=== PATIENT | male | born 1985 | race Hispanic/Latino ===

== ENCOUNTER 2020-11-22 18:45 | Emergency (ER) | payer MEDICAID ==
[~2020-11-22] VITALS: Ht 167.6 cm; Wt 129.3 kg
[2020-11-22 19:58] LABS: BASOPHILS % (AUTO) 0.6 % (0.0-5.0); EOSINOPHILS % (AUTO) 1.8 % (0.0-8.0); HEMATOCRIT 37.1 % (42-54); LYMPHOCYTES % (AUTO) 23.9 % (21.0-51.0); MEAN CORPUSCULAR HEMOGLOBIN 28.5 pg (27.0-33.0); MEAN CORPUSCULAR HGB CONC 35.3 g/dL (32.0-36.0); MEAN CORPUSCULAR VOLUME 80.8 fL (79-99); NEUTROPHILS % (AUTO) 68.3 % (40.0-77.0); PLATELET COUNT (AUTO) 223 K/uL (130-400); RED BLOOD CELL COUNT(AUTO) 4.59 MIL/uL (4.50-6.20); RED CELL DISTRIBUTION WIDTH 12.9 % (11.0-15.5); WHITE BLOOD COUNT (AUTO) 8.4 K/uL (4.8-10.8)
[2020-11-22 20:00] LABS: APPEARANCE,URINE Clear (CLEAR); BILIRUBIN,URINE Small (NEGATIVE); COLOR,URINE Dark Yellow (YELLOW); GLUCOSE, URINE (UA) >=1000 mg/dL (NEGATIVE); KETONES,URINE 15 mg/dL (NEGATIVE); LEUKOCYTE ESTERASE ,URINE Negative (NEGATIVE); NITRATE,URINE Negative (NEGATIVE); OCCULT BLOOD,URINE Negative (NEGATIVE); PROTEIN,URINE POS 1+ mg/dL (NEGATIVE)
[2020-11-22 20:08] LABS: AMPHET/METH SCREEN,URINE NEGATIVE (NEGATIVE); BARBITURATE SCREEN, URINE NEGATIVE (NEGATIVE); BENZODIAZEPINES SCREEN,URINE NEGATIVE (NEGATIVE); CANNABINOID SCREEN,URINE POSITIVE (NEGATIVE); COCAINE SCREEN,URINE NEGATIVE (NEGATIVE); OPIATE SCREEN,URINE NEGATIVE (NEGATIVE); PHENCYCLIDINE SCREEN,URINE NEGATIVE (NEGATIVE)
[2020-11-22 20:08] LABS: CARBON DIOXIDE 29 mmol/L (21-32); CHLORIDE 96 mmol/L (101-111); CREATININE 1.2 mg/dL (0.5-1.5); GLOMERULAR FILTR. RATE CALC 73 mL/min (>60); GLUCOSE,RANDOM 377 mg/dL (70-105); POTASSIUM 3.3 mmol/L (3.5-5.1); SODIUM SERUM 135 mmol/L (136-145); UREA NITROGEN, BLOOD 13 mg/dL (7-18)
[2020-11-22 20:09] LABS: BACTERIA,URINE Few /HPF (None Seen); RBC,URINE 0-1 /HPF (0-1)
[2020-11-22 20:10] LABS: HYALINE CASTS, URINE 0-1 /LPF (0-1 /LPF); MUCUS,URINE Few LPF (None Seen); SQUAMOUS EPITHELIAL CELL,UR Few /HPF (0-2)
[2020-11-22 20:12] LABS: ACETAMINOPHEN < 1 mcg/mL (10-29); ALANINE AMINOTRANSFERASE 232 U/L (12-78); ALBUMIN 3.6 g/dL (3.5-5.0); ALCOHOL, BLOOD 5 mg/dL (0-10); ASPARTATE AMINOTRANSFERASE 148 U/L (10-37); BILIRUBIN,TOTAL 0.7 mg/dL (0.2-1.0); CREATINE KINASE, TOTAL 238 U/L (21-232); SALICYLATE < 2.8 mg/dL (2.8-20.0); TOTAL PROTEIN, SERUM 7.6 g/dL (6.0-8.3)
[2020-11-22] MEDS ORDERED: INSULIN HUMULIN R 100 UNIT/ML 3ML IV ONE (21:00)
[2020-11-22] MEDS ORDERED: 0.9%NACL 1000ML 1,000 ML IV ONE (21:00)
[2020-11-22] MEDS ORDERED: POTASSIUM BICARB/CIT AC 25 MEQ TABLET.EFF PO ONE (21:00)
[2020-11-22] MEDS ORDERED: FAMOTIDINE 20MG VIAL IV ONE ×2 (21:30→21:31)
[2020-11-23 00:49] VITALS: BP 132/92
== END 2020-11-23 00:53 | disposition home or self-care (01) ==
LOC: EDH 18:45
DX: F20.9 Schizophrenia, unspecified (principal); Z20.822 Contact with and (suspected) exposure to COVID-19; E11.9 Type 2 diabetes mellitus without complications; E78.00 Pure hypercholesterolemia, unspecified; I10 Essential (primary) hypertension; J45.909 Unspecified asthma, uncomplicated; Z79.4 Long term (current) use of insulin
CPT/HCPCS: 36415; 80053; 80305; 81001; 82550; 82948; 85025; 87635; 96374; 96375; 99284; C9803; G0481; J1815; J7030; S0028; J3490

== ENCOUNTER 2022-05-22 17:07 | Emergency (ER) | payer MEDICAID ==
[~2022-05-22] VITALS: Ht 167.6 cm; Wt 121.1 kg
[2022-05-22 17:35] LABS: BASOPHILS % (AUTO) 0.8 % (0.0-5.0); EOSINOPHILS % (AUTO) 4.1 % (0.0-8.0); HEMATOCRIT 40.2 % (42-54); LYMPHOCYTES % (AUTO) 34.2 % (21.0-51.0); MEAN CORPUSCULAR HGB CONC 35.6 g/dL (32.0-36.0); MEAN CORPUSCULAR VOLUME 81.5 fL (79-99); MONOCYTES % (AUTO) 5.7 % (3.0-13.0); NEUTROPHILS % (AUTO) 54.8 % (40.0-77.0); PLATELET COUNT (AUTO) 271 K/uL (130-400); RED BLOOD CELL COUNT(AUTO) 4.93 MIL/uL (4.50-6.20); RED CELL DISTRIBUTION WIDTH 13.2 % (11.0-15.5); WHITE BLOOD COUNT (AUTO) 10.3 K/uL (4.8-10.8)
[2022-05-22 17:45] LABS: CREATININE 0.9 mg/dL (0.5-1.5); POTASSIUM 3.1 mmol/L (3.5-5.1)
[2022-05-22 17:52] LABS: TOTAL PROTEIN, SERUM 7.7 g/dL (6.0-8.3)
[2022-05-22] MEDS ORDERED: MECL-226 PO (17:54)
[2022-05-22 18:04] VITALS: BP 155/80
== END 2022-05-22 18:13 | disposition home or self-care (01) ==
LOC: EDH 17:07
DX: R42 Dizziness and giddiness (principal); I10 Essential (primary) hypertension; E11.9 Type 2 diabetes mellitus without complications; E78.00 Pure hypercholesterolemia, unspecified; F20.9 Schizophrenia, unspecified; J45.909 Unspecified asthma, uncomplicated; F41.9 Anxiety disorder, unspecified; F32.A Depression, unspecified
CPT/HCPCS: 36415; 80053; 84484; 85025

== ENCOUNTER 2023-07-31 22:14 | Emergency (ER) | payer MEDICAID ==
[~2023-07-31] VITALS: Ht 167.6 cm; Wt 127.0 kg
[~2023-07-31 22:14] MED LIST: MECL-226 PO
[2023-07-31 22:36] LABS: BASOPHILS # (AUTO) 0.07 K/uL (0.00-0.20); BASOPHILS % (AUTO) 0.6 % (0.0-5.0); EOSINOPHILS # (AUTO) 0.33 K/uL (0.00-0.70); HEMATOCRIT 38.5 % (42-54); IMMATURE GRANULOCYTE ABSOLUTE 0.04 K/uL (0-1); LYMPHOCYTES # (AUTO) 3.2 K/uL (1.0-4.8); LYMPHOCYTES % (AUTO) 28.5 % (21.0-51.0); MEAN CORPUSCULAR HEMOGLOBIN 29.6 pg (27.0-33.0); MEAN CORPUSCULAR HGB CONC 35.6 g/dL (32.0-36.0); MEAN CORPUSCULAR VOLUME 83.2 fL (79-99); MONOCYTES # (AUTO) 0.6 K/uL (0.1-1.0); MONOCYTES % (AUTO) 5.1 % (3.0-13.0); NEUTROPHILS % (AUTO) 62.4 % (40.0-77.0); PLATELET COUNT (AUTO) 287 K/uL (130-400); RED BLOOD CELL COUNT(AUTO) 4.63 MIL/uL (4.50-6.20); RED CELL DISTRIBUTION WIDTH 13.8 % (11.0-15.5); WHITE BLOOD COUNT (AUTO) 11.1 K/uL (4.8-10.8)
[2023-07-31 22:49] LABS: ALBUMIN 3.7 g/dL (3.5-5.0); BILIRUBIN,TOTAL 0.4 mg/dL (0.2-1.0); TOTAL PROTEIN, SERUM 7.4 g/dL (6.0-8.3)
[2023-07-31] MEDS: CEFTRIAXONE 2GM VIAL IVPB STA (22:51)
[2023-07-31 23:00] LABS: POTASSIUM 2.6 mmol/L (3.5-5.1)
[2023-07-31] MEDS: ACETAMINOPHEN 500 MG TABLET PO ONE (23:25)
[2023-07-31] MEDS: POTASSIUM BICARB/CIT AC 25 MEQ TABLET.EFF PO ONE (23:26)
[2023-08-01] MEDS ORDERED: ACET-2079 PO (00:53)
[2023-08-01] MEDS: LIDOCAINE 2%-EPI 1:200,000 20 ML VIAL IJ SCH (00:53)
[2023-08-01 01:58] VITALS: BP 138/79; PULSE 76; RESP 18; O2SAT 98
== END 2023-08-01 02:00 | disposition home or self-care (01) ==
LOC: EDH 22:14
DX: L02.31 Cutaneous abscess of buttock (principal); K60.3 Anal fistula; F41.9 Anxiety disorder, unspecified; J45.909 Unspecified asthma, uncomplicated; F31.9 Bipolar disorder, unspecified; E11.9 Type 2 diabetes mellitus without complications; E78.00 Pure hypercholesterolemia, unspecified; I10 Essential (primary) hypertension; F20.9 Schizophrenia, unspecified; Z79.899 Other long term (current) drug therapy
CPT/HCPCS: 99283; 96374; 80053; 85025; 36415; 10060; J0696; J3490

== ENCOUNTER → 2023-09-23 | Emergency (ER) | payer MEDICAID ==
[~2023-09-23] VITALS: Ht 167.6 cm; Wt 130.2 kg
[2023-09-23 00:30] VITALS: BP 169/100; PULSE 82; RESP 20
== END ==
LOC: EDH 00:27
DX: M25.519 Pain in unspecified shoulder (principal); R50.9 Fever, unspecified; Z53.21 Procedure and treatment not carried out due to patient leaving prior to being seen by health care provider

== ENCOUNTER 2023-09-26 14:51 | Emergency (ER) | payer MEDICAID ==
[~2023-09-26] VITALS: Ht 167.6 cm; Wt 127.0 kg
[2023-09-26 15:24] VITALS: RESP 17; O2SAT 97
[2023-09-26] MEDS: cefTRIAXone 1G VIAL IVPB ONE (15:47)
[2023-09-26 15:50] VITALS: BP 169/109; PULSE 85
[2023-09-26] MEDS: CLONIDINE HCL 0.2 MG TABLET PO ONE (15:50)
[2023-09-26] MEDS ORDERED: SULF1TAB42 PO (16:14)
== END 2023-09-26 16:48 | disposition home or self-care (01) ==
LOC: EDH 14:51
DX: L02.31 Cutaneous abscess of buttock (principal); E11.9 Type 2 diabetes mellitus without complications; I10 Essential (primary) hypertension; Z79.899 Other long term (current) drug therapy
CPT/HCPCS: 99284; 96374; J0696

== ENCOUNTER 2023-09-28 05:43 | Emergency (ER) | payer MEDICAID ==
[~2023-09-28 05:43] MED LIST changes: +SULF1TAB42 PO
[2023-09-28] MEDS: acetaMINOPHEN 325 MG TAB PO ONE (06:43)
[2023-09-28] MEDS: HYDROCORTISONE 25 MG SUPPOSITORY PR SCH (07:55)
[2023-09-28] MEDS ORDERED: IBUP-1673 PO (08:37)
[2023-09-28 08:39] VITALS: BP 138/86; PULSE 77; RESP 16; O2SAT 100
== END 2023-09-28 08:47 | disposition home or self-care (01) ==
LOC: EDH 05:43
DX: K64.4 Residual hemorrhoidal skin tags (principal); R22.9 Localized swelling, mass and lump, unspecified; E11.9 Type 2 diabetes mellitus without complications; I10 Essential (primary) hypertension; Z79.899 Other long term (current) drug therapy

== ENCOUNTER → 2025-01-09 | Emergency (ER) | payer MEDICAID ==
[~2025-01-09] VITALS: Ht 167.6 cm; Wt 133.8 kg
[2025-01-09 22:13] VITALS: BP 155/95; PULSE 12; RESP 24; TEMP 97.9
--- NOTE | 2025-01-09 22:56 | NUR ---
CALLED FOR PT TO MOVE TO ROOM 10; NO RESPONSE. PT NOT FOUND IN LOBBY
--- NOTE | 2025-01-09 23:07 | NUR ---
CALLED FOR PT AGAIN; NO RESPONSE.
--- NOTE | 2025-01-09 23:42 | NUR ---
CALLED FOR PT A THIRD TIME, NO RESPONSE.
== END | disposition left against medical advice (07) ==
LOC: EDH 22:11
DX: R10.13 Epigastric pain (principal); R11.2 Nausea with vomiting, unspecified
CPT/HCPCS: 99281